=== PATIENT | male | born 1955 ===

== ENCOUNTER 2017-09-24 09:35 | Inpatient (IN) | payer MEDICAID, OTHER ==
--- NOTE | 2017-09-24 09:37 | ED PDOC ---
Arrival/HPI - General Time Seen by Provider: 09/24/17 09:36 Historian: Patient (Indonesian speaking) - History of Present Illness Narrative History of Present Illness (Text): 09/24/17 09:37 A 61 year old male, whose past medical history includes prior MD and 2 cardiac stent placement in [place] 2005, brought into the emergency department by EMS from [facility] complaining of left sided chest pain since 04:00 this morning. Patient notes associated nausea and shortness of breath. He reports his symptoms have improved since leaving freestanding ER. Patient denies any fever, chills, cough, vomiting, abdominal pain or any other complaints. Patient takes Aspirin daily. PMD: None Time/Duration: Other (04:00 this morning) Symptom Course: Improving Quality: Other Context: Home, Other ([facility]) Past Medical History - Provider Review Nursing Documentation Reviewed: Yes Family/Social History - Physician Review Nursing Documentation Reviewed: Yes Family/Social History: No Known Family HX Allergies/Home Meds Allergies/Adverse Reactions: Allergies No Known Allergies Allergy (Verified 09/24/17 12:40) Home Medications: Home Meds Medication Instructions Recorded Confirmed Aspirin [Ecotrin] 81 mg PO DAILY 09/24/17 09/24/17 Atorvastatin [Lipitor] 40 mg PO DIN 09/24/17 09/24/17 Levothyroxine [Levoxyl] 25 mg PO DAILY 09/24/17 09/24/17 Metoprolol Tartrate [Lopressor] 25 mg PO BID 09/24/17 09/24/17 Review of Systems - Physician Review All systems were reviewed & negative as marked: Yes - Review of Systems Constitutional: absent: Fevers, Night Sweats Respiratory: SOB. absent: Cough Cardiovascular: Chest Pain Gastrointestinal: Nausea. absent: Abdominal Pain, Vomiting Physical Exam Vital Signs Temp Pulse Resp BP Pulse Ox 09/24/17 10:00 98.6 F 46 L 18 135/77 98 09/24/17 09:40 97.8 F 47 L 18 135/77 98 Appearance: Positive for: Well-Appearing, Non-Toxic, Comfortable Pain Distress: None Mental Status: Positive for: Alert and Oriented X 3 - Systems Exam Head: Present: Atraumatic, Normocephalic Pupils: Present: PERRL Extroacular Muscles: Present: EOMI Conjunctiva: Present: Normal Mouth: Present: Moist Mucous Membranes Neck: Present: Normal Range of Motion Respiratory/Chest: Present: Clear to Auscultation, Good Air Exchange. No: Respiratory Distress, Accessory Muscle Use Cardiovascular: Present: Regular Rate and Rhythm, Normal S1, S2. No: Murmurs Abdomen: No: Tenderness, Distention, Peritoneal Signs Back: Present: Normal Inspection Upper Extremity: Present: Normal Inspection. No: Cyanosis, Edema Lower Extremity: Present: Normal Inspection. No: Edema Neurological: Present: GCS=15, CN II-XII Intact, Speech Normal Skin: Present: Warm, Dry, Normal Color. No: Rashes Psychiatric: Present: Alert, Oriented x 3, Normal Insight, Normal Concentration Medical Decision Making ED Course and Treatment: 09/24/17 09:37 Impression: A 61 year old male with left sided chest pain, which has improved. Differential Diagnosis included but are not limited to: MD Plan: -- Chest xray -- EKG -- Labs -- Integrilin bolus -- Reassess and disposition Progress Notes: Pre-hospital notice by ED physician Dr[facility], reports patient given 325 mg of Aspirin. 09/24/17 09:35 EKG shows NSR at [address]-segment elevations and Q-waves in V1-V4, with no change from prior EKG done at [facility] at 08:53 today. Interpreted by me. 09/24/17 09:[address] Quintana, recommends starting Integrilin bolus and sending patient for cardiac catheterization. 09/24/17 09:37 Code heart activated at this time. 09/24/17 09:[address] aDndy Pickering and resident Dr. Kathia Rodas, who will evaluate patient at bedside. - Critical Care Critical Care Minutes: 45 minutes - Lab Interpretations Lab Results: 09/24/17 09:40 09/24/17 09:40 Lab Results 09/24/17 09:45: Blood Type O POSITIVE, Antibody Screen Negative, BBK History Checked No verified bt 09/24/17 09:40: Free T4 0.97, TSH 3rd Generation 4.00 09/24/17 09:40: Triglycerides 100, Cholesterol 111 L, LDL Cholesterol Direct 46 , HDL Cholesterol 44 09/24/17 09:40: Sodium 142, Potassium 3.8, Chloride 105, Carbon Dioxide 25, Anion Gap 16, BUN 21, Creatinine 1.0, Est GFR ( Amer) > 60, Est GFR (Non- Af Amer) > 60, Random Glucose 98, Calcium 9.1, Total Bilirubin 0.8, AST 40, ALT 44, Alkaline Phosphatase 75, Lactate Dehydrogenase 431, Total Creatine Kinase 261 H, CK-MB (CK-2) 4.4 H, CK-MB (CK-2) % Cancelled, Troponin I < 0.01, Total Protein 7.0, Albumin 4.3, Globulin 2.7, Albumin/Globulin Ratio 1.6 09/24/17 09:40: PT 11.9, INR 1.03 09/24/17 09:40: WBC 6.6, RBC 4.55, Hgb 13.3 L, Hct 40.0 L, MCV 87.9, MCH 29.2, MCHC 33.3, RDW 13.1, Plt Count 235, MPV 9.1, Gran % 51.2, Lymph % (Auto) 39.2 H , Beaver % (Auto) 7.0 H, Eos % (Auto) 1.8, Baso % (Auto) 0.8, Gran # 3.39, Lymph # (Auto) 2.6, [place] # (Auto) 0.5, Eos # (Auto) 0.1, Baso # (Auto) 0.05 I have reviewed the lab results: Yes - RAD Interpretation Radiology Orders: 09/24/17 09:38 CHEST PORTABLE [RAD] Stat - Medication Orders Current Medication Orders: Aspirin (Ecotrin) 81 mg PO DAILY [facility] Atorvastatin Calcium (Lipitor) 40 mg PO DIN [facility] Clopidogrel Bisulfate (Plavix) 75 mg PO DAILY [facility] Sodium Chloride (Sodium Chloride 0.9%) 1,000 mls @ 100 mls/hr IV .Q10H [facility] Stop: 09/24/17 18:00 Last Admin: 09/24/17 10:45 Dose: 100 mls/hr eMAR Start Stop Document 09/24/17 10:45 JFG (Rec: 09/24/17 13:16 JFG [facility]PER[facility]) Intravenous Solution Start Date 09/24/17 Start Time 10:45 End Date 09/24/17 Levothyroxine Sodium (Synthroid) 25 mcg PO ACB [facility] Metoprolol Tartrate (Lopressor) 25 mg PO BID [facility] Neomycin/Polymyxin/Bacitracin (Neosporin Triple Antibiotic Oint) 0 gm TOP BID [facility] Pantoprazole Sodium (Protonix Ec Tab) 40 mg PO 0600,1600 [facility] Discontinued Medications Eptifibatide (Integrilin Bolus) 10.8 mg 0.18 mg/kg (10.8 mg) IV ONCE ONE Stop: 09/24/17 09:40 Levothyroxine Sodium (Synthroid) 25 mcg PO DAILY [facility] - Scribe Statement The provider has reviewed the documentation as recorded by the Edna He Provider Scribe Attestation: All medical record entries made by the Adyibe were at my direction and personally dictated by me. I have reviewed the chart and agree that the record accurately reflects my personal performance of the history, physical exam, medical decision making, and the department course for this patient. I have also personally directed, reviewed, and agree with the discharge instructions and disposition. Disposition/Present on Arrival - Present on Arrival Any Indicators Present on Arrival: No - Disposition Have Diagnosis and Disposition been Completed?: Yes Diagnosis: STEMI (ST elevation myocardial infarction) Disposition: HOSPITALIZED Disposition Time: 09:42 Patient Plan: Admission Condition: FAIR
[2017-09-24] MEDS ORDERED: Eptifibatide 20 mg/10mL Inj IV ONE (09:39)
[2017-09-24 09:41] VITALS: BMI 21.1
[2017-09-24] MEDS ORDERED: Midazolam 2 MG/2 ML VIAL ONE ×2 (09:55→10:35)
[2017-09-24] MEDS ORDERED: Lidocaine 2% Inj (20ml) ONE (09:55)
[2017-09-24 09:56] LABS: BASO # 0.05 K/mm3 (0.0-2.0); BASO % 0.8 % (0.0-3.0); EOS # 0.1 (0.0-0.7); EOS % 1.8 % (1.5-5.0); GRAN # 3.39 (1.4-6.5); GRAN % 51.2 % (50.0-68.0); HEMOGLOBIN 13.3 g/dL (14.0-18.0); LYMPH # 2.6 (1.2-3.4); LYMPH % 39.2 % (22.0-35.0); MEAN CELL VOLUME 87.9 fl (80.0-105.0); MEAN CORPUSCULAR HEMOGLOBIN 29.2 pg (25.0-35.0); MEAN CORPUSCULAR HGB CONC 33.3 g/dl (31.0-37.0); MEAN PLATELET VOLUME 9.1 fl (7.0-11.0); MONO # 0.5 (0.1-0.6); RBC 4.55 10^6/uL (3.5-6.1); RED CELL DISTRIBUTION WIDTH 13.1 % (11.5-14.5); WHITE BLOOD COUNT 6.6 10^3/ul (4.5-11.0)
[2017-09-24] MEDS ORDERED: Iodixanol 320 MG/ML 200 ML BOTTLE IV ONE (09:56)
[2017-09-24] MEDS ORDERED: Eptifibatide 0.75 mg/ml 75 MG/100 ML BOTTLE IV ONE (09:56)
[2017-09-24] MEDS ORDERED: Iohexol 350mgl/ml 50 ML ONE (09:56)
[2017-09-24 10:03] LABS: INR 1.03 (0.93-1.08); PROTHROMBIN TIME 11.9 SECONDS (9.4-12.5)
--- NOTE | 2017-09-24 10:04 | RAD ---
HISTORY: chest pain COMPARISON: No prior. FINDINGS: LUNGS: No active pulmonary disease. PLEURA: No significant pleural effusion identified, no pneumothorax apparent. CARDIOVASCULAR: Normal. OSSEOUS STRUCTURES: No significant abnormalities. VISUALIZED UPPER ABDOMEN: Normal. OTHER FINDINGS: None. IMPRESSION: No active disease.
[2017-09-24 10:06] LABS: ALB/GLOB RATIO 1.6 (1.1-1.8); ALBUMIN 4.3 g/dL (3.0-4.8); ALT/SGPT 44 U/L (7-56); AST/SGOT 40 U/L (17-59); BLOOD UREA NITROGEN 21 mg/dL (7-21); CALCIUM 9.1 mg/dL (8.4-10.5); GFR AFRICAN-AMERICAN > 60; GFR NON-AFRICAN AMERICAN > 60
--- NOTE | 2017-09-24 10:10 | CP.PCM.HP ---
<Kathia Rodas - Last Filed: 09/24/17 11:02> History of Present Illness - History of Present Illness History of Present Illness: PGY-[address] Pickering CC: Code Heart 61 Coloumbian male, Azerbaijani speaking only, whose past medical history includes prior [place] and cardiac stent placement in [place] 2005 and family history premature [place], brought into the emergency department by EMS from [facility] complaining of left sided chest pain since 04:00 this morning. Patient notes associated nausea and shortness of breath. He reports his symptoms have improved since leaving fre[facility]anding ER. EKG at [facility]3] (8:53am): Sinus 47. ST elevation V1-4. No reciprocal changes EKG at [facility] ED (9:35am): Sinus 46. ST elevation V1-V3. New TWI V4. No reciprocal changes Pt got ASA 325 prior to [facility]. Dr Quintana, child protective investigator, was notified. Integrillin bolus was given in the ED. laboratory miller reveals restonosis at LAD. A new BRODY was placed s/p PCI. In ICU patient complaint of R groin itch. He scratched via clothes and bled. He has chronic slow and weak stream in urine ROS: Patient denies any fever, chills, cough, vomiting, abdominal pain or any other complaints. PMH CAD s/p stent, 2005 Hyperlipidemia Hypothyroidism PSH None FH Brother heart attack at 50 SH Denies smoke, drink, drug All NKDA Med ASA 100, metoprolol 25 BID, atorvastatin 40, thyroxine 25 PMD No (only in [place]) Pharm No (only in [place]) Present on Admission - Present on Admission Any Indicators Present on Admission: No Past Patient History - Infectious Disease Hx of Infectious Diseases: None - Past Social History Smoking Status: Unknown If Ever Smoked - CARDIAC Other/Comment: cardiac stent - ENDOCRINE/METABOLIC Hx Hypothyroidism: Yes - PSYCHIATRIC Hx Substance Use: No - ANESTHESIA Hx Anesthesia: No Hx Anesthesia Reactions: No Meds Allergies/Adverse Reactions: Allergies Allergy/AdvReac Type Severity Reaction Status Date / Time No Known Allergies Allergy Verified 09/24/17 12:40 Physical Exam - Constitutional Appears: No Acute Distress - Head Exam Head Exam: ATRAUMATIC, NORMAL INSPECTION, NORMOCEPHALIC - Eye Exam Eye Exam: EOMI, Normal appearance, PERRL. absent: Scleral icterus Pupil Exam: NORMAL ACCOMODATION - ENT Exam ENT Exam: Mucous Membranes Moist - Neck Exam Additional comments: supple, no JVD - Respiratory Exam Respiratory Exam: Clear to Auscultation Bilateral, NORMAL BREATHING PATTERN. absent: Rales, Rhonchi, Wheezes - Cardiovascular Exam Cardiovascular Exam: Bradycardia, REGULAR RHYTHM, +S1, +S2 - GI/Abdominal Exam GI & Abdominal Exam: Normal Bowel Sounds, Soft. absent: Distended, Tenderness - Extremities Exam Extremities exam: Positive for: pedal pulses present. Negative for: calf tenderness, pedal edema Additional comments: R groin scab, well healed, 1ich x 1 inch - Neurological Exam Neurological exam: Alert, Oriented x3 - Psychiatric Exam Psychiatric exam: Normal Affect, Normal Mood - Skin Skin Exam: Dry, Warm Results - Vital Signs Recent Vital Signs: Last Vital Signs Temp 97.8 F 09/24/17 09:40 Pulse 47 L 09/24/17 09:40 Resp 18 09/24/17 09:40 BP 135/77 09/24/17 09:40 Pulse Ox 98 09/24/17 09:40 - Labs Result Diagrams: 09/24/17 09:40 09/24/17 09:40 Labs: Laboratory Results - last 24 hr 09/24/17 09:40 WBC 6.6 RBC 4.55 Hgb 13.3 L Hct 40.0 L MCV 87.9 MCH 29.2 MCHC 33.3 RDW 13.1 Plt Count 235 MPV 9.1 Gran % 51.2 Lymph % (Auto) 39.2 H Josephine % (Auto) 7.0 H Eos % (Auto) 1.8 Baso % (Auto) 0.8 Gran # 3.39 Lymph # (Auto) 2.6 Josephine # (Auto) 0.5 Eos # (Auto) 0.1 Baso # (Auto) 0.05 Assessment & Plan - Assessment and Plan (Free Text) Plan: 61 Colou[place]ian male, Azerbaijani speaking only, whose past medical history includes prior [place] and cardiac stent placement in [place] 2005 and family history of premature cardiac event, brought into the emergency department by EMS from [facility] complaining of left sided chest pain associated with nausea and shortness of breath. EKG at [facility]3] (8:53am) showed Sinus [address] elevation at V1-4. EKG at [facility] ED (9:35am) shows Sinus 46. ST elevation V1-V3. New TWI V4. No reciprocal changes. Pt got ASA 325 prior to [facility] and received integrillin bolus x1 prior to optical laboratory technician. Pt had a restenosis in prior LAD stent. After PCI, he receive a new drug-eluting stent at the LAD. STEMI due to LAD restenosis BRODY placement - R groin assess - No need for integrillin gtt - Pending Lipid, A1c, TSH - AM EKG and trend cardiac enzyme overnight - Add plavix - Continue home ASA, metoprolol, lipitor - Echo - NS@100 to prevent contrast nephropathy - strict i/o R groin itch, s/p bleed from scratching - triple ointment Hypothyroidism - Continue home thyroxine - Pending TSH, free T4 Suspected benigh prostate hyperplasia - F/u outpatient - U/A, u/c Prophylaxis - protonix. No need for heparin SCD per Dr Quintana because he received doses of anticoagulant and antiplatete during cath Disposition - expect to discharge home tomorrow per cardiology - follow up with [facility] 1 week after discharge - follow up with Dr Quintana 1-2 weeks after discharge s/r/d/w Dr. Pickering <Dandy Pickering B - Last Filed: 09/25/17 16:59> Results - Vital Signs Recent Vital Signs: Last Vital Signs Temp 98.8 F 09/25/17 12:00 Pulse 58 L 09/25/17 15:31 Resp 13 09/25/17 15:31 BP 95/49 L 09/25/17 15:00 Pulse Ox 96 09/25/17 15:30 - Labs Result Diagrams: 09/25/17 06:25 09/25/17 06:25 Labs: Laboratory Results - last 24 hr 09/25/17 09/25/17 06:25 06:25 WBC 6.8 RBC 4.16 Hgb 12.1 L Hct 36.4 L MCV 87.5 MCH 29.1 MCHC 33.2 RDW 13.2 Plt Count 202 MPV 9.4 Gran % 65.5 Lymph % (Auto) 26.0 Josephine % (Auto) 7.3 H Eos % (Auto) 0.9 L Baso % (Auto) 0.3 Gran # 4.46 Lymph # (Auto) 1.8 Josephine # (Auto) 0.5 Eos # (Auto) 0.1 Baso # (Auto) 0.02 Sodium 141 Potassium 3.6 Chloride 107 Carbon Dioxide 23 Anion Gap 14 BUN 18 Creatinine 1.0 Est GFR ( Amer) > 60 Est GFR (Non-Af Amer) > 60 Random Glucose 85 Calcium 8.7 Phosphorus 3.9 Magnesium 2.1 Total Bilirubin 1.2 AST 32 ALT 37 Alkaline Phosphatase 65 Total Protein 6.1 Albumin 3.5 Globulin 2.5 Albumin/Globulin Ratio 1.4 Triglycerides 70 Cholesterol 98 L LDL Cholesterol Direct 41 HDL Cholesterol 41 Attending/Attestation - Attestation I have personally seen and examined this patient.: Yes I have fully participated in the care of the patient.: Yes I have reviewed all pertinent clinical information: Yes Notes (Text): I have seen and examined the patient at bedside. Agree with the above note.
[2017-09-24 10:17] LABS: TROPONIN I < 0.01 ng/mL
[2017-09-24 10:38] LABS: CK-MB 4.4 ng/mL (0.0-3.6); HDL CHOLESTEROL 44 mg/dL (29-60)
[2017-09-24] MEDS ORDERED: Sodium Chloride 0.9% 1,000 ML IV SCH (10:45)
[2017-09-24 10:49] LABS: LDL CHOLESTEROL 46 mg/dL (0-129)
--- NOTE | 2017-09-24 10:49 | CARD ---
APPROVED REPORT EKG Measurement Heart [id number] <Conclusion> Marked sinus bradycardia with sinus arrhythmia Left axis deviation Anteroseptal infarct, age undetermined T wave abnormality, consider lateral ischemia Abnormal ECG
[2017-09-24 11:05] LABS: FREE T4 0.97 ng/dL (0.78-2.19)
[2017-09-24] MEDS: Bacitracin/Neomycin/Polymyxin Oint(30GM) TOP SCH ×2 (12:00→17:27)
[2017-09-24 12:20] LABS: PH,URINE 6.5 (4.7-8.0); URINE BILIRUBIN NEGATIVE (NEGATIVE); URINE BLOOD NEGATIVE (NEGATIVE); URINE GLUCOSE (UA) NEGATIVE (NEGATIVE); URINE LEUKOCYTE ESTERASE NEGATIVE Leu/uL (NEGATIVE); URINE PROTEIN NEGATIVE mg/dL (<30 mg/dL); URINE UROBILINOGEN 0.2 E.U./dL (<1 E.U./dL)
[2017-09-24 12:21] LABS: URINE APPEARANCE CLEAR (CLEAR); URINE COLOR YELLOW (YELLOW)
--- NOTE | 2017-09-24 12:53 | CP.PCM.CON ---
<Ronald Funk - Last Filed: 09/24/17 13:04> History of Present Illness - History of Present Illness History of Present Illness: Consult note for ICU Patient is a 61 year old male with a past medical history of [place] s/p 2 stents in 2005 and hypothyroidism who presents to is admitted to ICU s/p catheterization. Patient states he woke up this morning at 4 a.m. with pain in his left chest which wrapped around to the left part of his back and radiated downward to his waist. Patient described the pain as sharp, rating it an 8/10 which wasn't relieved until given aspirin. Pain had no exacerbating factors. States pain was similar to the pain he experienced during his first LA in 2005 while he was in [facility]. States pain in left waist is still present however denies shortness of breath, chest pain, abdominal pain, nausea, vomiting, diarrhea, fevers, chills, headache, cough. When patient experienced the pain he called for a taxi to bring him to the [facility] for further evaluation. Patient was given aspirin 325 [address] then [address] to the [facility]. EKG at [facility] done at 8: 53am reveals sinus 47, ST elevation V1-4 with no reciprocal changes. EKG at [facility] done at 9:35am reveals sinus 46. ST elevation V1-V3. New TWI V4. No reciprocal changes. Integrillin bolus was given in the ED. labour market economist reveals restonosis at LAD. A new BRODY was placed s/p PCI. PMD: In [facility]. Patient has not established care since being [place] this country [place] 1 [place] PMHx: LA s/p 2 stents in 2005, hypothyroidism Medications: Synthroid, Metoprolol, Aspirin , Atorvastatin; patient states he gets his medications sent from [facility] and is completely compliant with his medications SHx: Catheterization in 2005 in which 2 stents were placed FHx: Extensive for cardiac disease; brother at 40 yo due to LA, most of his paternal uncles have due to LA. Social Hx: Living in [facility] for 1 year with his son. High functional capacity; walks long distances every day. States he is compliant with his diet. Does not work but remains physically active Allergies: denies Review of Systems - Constitutional Constitutional: absent: Anorexia, Chills, Fatigue, Fever - EENT Eyes: absent: Change in Vision - Cardiovascular Cardiovascular: absent: Chest Pain, Dyspnea - Respiratory Respiratory: absent: Cough, Dyspnea - Gastrointestinal Gastrointestinal: absent: Abdominal Pain, Nausea, Vomiting - Genitourinary Genitourinary: absent: Dysuria - Musculoskeletal Musculoskeletal: Back Pain (left waist/back) - Neurological Neurological: absent: Dizziness, Numbness - Psychiatric Psychiatric: absent: Anxiety - Endocrine Endocrine: absent: Fatigue, Flushing, Palpitations Past Patient History - Infectious Disease Hx of Infectious Diseases: None - Past Social History Smoking Status: Unknown If Ever Smoked - CARDIAC Other/Comment: cardiac stent - ENDOCRINE/METABOLIC Hx Hypothyroidism: Yes - PSYCHIATRIC Hx Substance Use: No - ANESTHESIA Hx Anesthesia: No Hx Anesthesia Reactions: No Meds Allergies/Adverse Reactions: Allergies Allergy/AdvReac Type Severity Reaction Status Date / Time No Known Allergies Allergy Verified 09/24/17 12:40 - Medications Medications: Current Medications Aspirin (Ecotrin) 81 mg PO DAILY [facility] Atorvastatin Calcium (Lipitor) 40 mg PO DIN [facility] Clopidogrel Bisulfate (Plavix) 75 mg PO DAILY [facility] Sodium Chloride (Sodium Chloride 0.9%) 1,000 mls @ 100 mls/hr IV .Q10H [facility] Stop: 09/24/17 18:00 Levothyroxine Sodium (Synthroid) 25 mcg PO ACB [facility] Metoprolol Tartrate (Lopressor) 25 mg PO BID [facility] Neomycin/Polymyxin/Bacitracin (Neosporin Triple Antibiotic Oint) 0 gm TOP BID [facility] Physical Exam - Head Exam Head Exam: ATRAUMATIC, NORMAL INSPECTION, NORMOCEPHALIC - Eye Exam Eye Exam: EOMI, Normal appearance - ENT Exam ENT Exam: Mucous Membranes Moist, Normal Exam - Neck Exam Neck exam: Positive for: Normal Inspection - Respiratory Exam Respiratory Exam: Clear to Auscultation Bilateral, NORMAL BREATHING PATTERN. absent: Rales, Rhonchi, Wheezes - Cardiovascular Exam Cardiovascular Exam: Bradycardia, REGULAR RHYTHM, +S1, +S2 - GI/Abdominal Exam GI & Abdominal Exam: Normal Bowel Sounds, Soft. absent: Distended, Guarding, Tenderness - Extremities Exam Extremities exam: Positive for: normal inspection - Back Exam Back exam: NORMAL INSPECTION - Neurological Exam Neurological exam: Alert, CN II-XII Intact, Oriented x3 - Skin Additional comments: Skin patent at site of cath, no hematoma or ecchymosis noted, no purulent drainage Results - Vital Signs Recent Vital Signs: Last Vital Signs Temp 97.8 F 09/24/17 12:09 Pulse 38 L 09/24/17 12:09 Resp 18 09/24/17 12:09 BP 108/52 L 09/24/17 12:09 Pulse Ox 100 09/24/17 12:09 - Labs Result Diagrams: 09/24/17 09:40 09/24/17 09:40 Labs: Laboratory Results - last 24 hr 09/24/17 11:52 Urine Color Yellow Urine Appearance Clear Urine pH 6.5 Ur Specific [place] <= 1.005 Urine Protein Negative Urine Glucose (UA) Negative Urine Ketones Negative Urine Blood Negative Urine Nitrate Negative Urine Bilirubin Negative Urine Urobilinogen 0.2 Ur Leukocyte Esterase Negative Assessment & Plan - Assessment and Plan (Free Text) Assessment: 61 M with history of ACS and hypothyroidism presenting s/p cardiac cath due to LA. labour market economist revealed restonosis at LAD. A new BRODY was placed s/p PCI. Neuro -AAOx3 Cardiovascular -Maintain MAP>65 -F/U post cath orders -Maintain normotensive -Monitor BP -Continue with aspirin,lipitor,plavix,lopressor -Echo -F/U lipid panel Pulmonary -Maintain sPO2 >92% Gastrointestinal -Heart healthy diet -GI prophylaxis Endocrine -Continue with synthroid -TSH, HgA1C ordered Renal -Maintain euvolemia -Maintain normal electrolytes -Monitor I&O Hematologic -H&H stable continue to monitor -INR stable at 1.03 Skin -monitor cath site for hematoma formation, ecchymosis, drainage Infectious disease -No signs of UTI on UA -Absence of leukocytosis -Afebrile -No further intervention at this time <Luis Alberto Evans - Last Filed: 09/24/17 15:06> Meds - Medications Medications: Current Medications Aspirin (Ecotrin) 81 mg PO DAILY [facility] Atorvastatin Calcium (Lipitor) 40 mg PO DIN [facility] Clopidogrel Bisulfate (Plavix) 75 mg PO DAILY [facility] Sodium Chloride (Sodium Chloride 0.9%) 1,000 mls @ 100 mls/hr IV .Q10H [facility] Stop: 09/24/17 18:00 Last Admin: 09/24/17 10:45 Dose: 100 mls/hr Levothyroxine Sodium (Synthroid) 25 mcg PO ACB [facility] Metoprolol Tartrate (Lopressor) 25 mg PO BID [facility] Neomycin/Polymyxin/Bacitracin (Neosporin Triple Antibiotic Oint) 0 gm TOP BID [facility] Pantoprazole Sodium (Protonix Ec Tab) 40 mg PO 0600,1600 [facility] Results - Vital Signs Recent Vital Signs: Last Vital Signs Temp 97.8 F 09/24/17 12:39 Pulse 37 L 09/24/17 14:20 Resp 19 09/24/17 14:20 BP 111/52 L 09/24/17 14:00 Pulse Ox 100 09/24/17 14:20 - Labs Result Diagrams: 09/24/17 09:40 09/24/17 09:40 Labs: Laboratory Results - last 24 hr 09/24/17 09/24/17 11:52 13:55 Urine Color Yellow Urine Appearance Clear Urine pH 6.5 Ur Specific [place] <= 1.005 Urine Protein Negative Urine Glucose (UA) Negative Urine Ketones Negative Urine Blood Negative Urine Nitrate Negative Urine Bilirubin Negative Urine Urobilinogen 0.2 Ur Leukocyte Esterase Negative Blood Type Confirm O POSITIVE Assessment & Plan - Assessment and Plan (Free Text) Assessment: Patient seen and examined on rounds, with resident, on rounds agree with note with following additions/exceptions: Patient is 61yo male with PMHx of HLD, CAD s/p PCI in 2005, hypothyroidism, presented with STEMI, V1-V3 MAGUE, s/p cardiac cath, with LAD restenosis, stent placed. Currently afebrile, HD stable, comfortable, in NAD, chest pain free. STEMI HLD Hypothyroid CAD Recommend: - supp o2 as needed - ASA, Plavix Statin - HOLD BB - check Lipid Panel, HgbA1C - ECHO - cardiology eval - check TSH - DVT ppx - Monitor in CCU
--- NOTE | 2017-09-24 13:37 | CARDCATH ---
PROCEDURE DATE: 09/24/2017 EMERGENCY CARDIAC CATHETERIZATION AND PTCA HISTORY: The patient is a 61-year-old male, who presented to the emergency room with sudden onset of chest pain. His past medical history includes previous PTCA in the past. Because of his symptoms as well as EKG that shows an ST elevations in the anterior wall, a code heart was called and the patient was transferred to the labor economist for an emergency procedure. PROCEDURE: Emergency left heart catheterization with coronary arteriography, left ventriculogram as well as PTCA and stent of an LAD. The right femoral artery was cannulated with a 6-Albanian sheath. There were no complications. I performed moderate sedation, which included the presence of an independent trained observer that assisted in monitoring the patient's level of consciousness and physiologic status. After administration of Versed and fentanyl, my intra service time was 30 minutes. The findings on catheterization revealed a right dominant circulation. The RCA was free of significant disease. The left main artery was unremarkable. The circumflex artery and obtuse marginal branches were free of significant disease. The LAD revealed a 90% in-stent restenosis extending from the proximal to the mid LAD. Left ventriculogram was performed in the BRITO projection. In the BRITO projection, wall motion revealed an anterior apical akinetic area. Estimated ejection fraction is approximately 40-45%. The patient was started on 4000 of IV heparin, which resulted in an ACT of 300. The patient was given Integrilin two boluses and a drip in the emergency room. He was loaded with Brilinta. The guiding catheter was placed in the ostium of the left main artery. 0.014 ATW wire was used to cross the in-stent restenosis. A 3 balloon was utilized to predilate the in-stent restenosis. A 3 x 38 mm drug-eluting stent was placed and deployed in the LAD extending the length of the previously placed stent. After balloon deflation and removal, repeat coronary arteriography revealed an excellent result with no residual stenosis and MARY 3 flow. Angio-Seal was used to close the femoral artery site. The patient tolerated the procedure well. In summary, the procedure was successful for an emergency PTCA and stent of an in-stent restenosis of 90% of the proximal LAD and mid LAD. Cardiac catheterization revealed single-vessel CAD. LV function revealed segmental wall motion abnormalities of the anteroapical segment. Given these findings, the patient will need to remain on aspirin indefinitely. We will switch the patient back to Plavix. He will need to undergo a strict cardiac risk reduction program. Dago Quintana MD
[2017-09-24] MEDS: Pantoprazole 40 mg EC Tab PO SCH (16:02)
[2017-09-25] MEDS ORDERED: Pantoprazole 40 mg EC Tab PO SCH (06:00)
[2017-09-25 07:07] LABS: BASO # 0.02 K/mm3 (0.0-2.0); BASO % 0.3 % (0.0-3.0); EOS # 0.1 (0.0-0.7); EOS % 0.9 % (1.5-5.0); GRAN # 4.46 (1.4-6.5); GRAN % 65.5 % (50.0-68.0); HEMOGLOBIN 12.1 g/dL (14.0-18.0); LYMPH # 1.8 (1.2-3.4); MEAN CELL VOLUME 87.5 fl (80.0-105.0); MEAN CORPUSCULAR HEMOGLOBIN 29.1 pg (25.0-35.0); MEAN CORPUSCULAR HGB CONC 33.2 g/dl (31.0-37.0); MEAN PLATELET VOLUME 9.4 fl (7.0-11.0); MONO # 0.5 (0.1-0.6); MONO % 7.3 % (1.0-6.0); RBC 4.16 10^6/uL (3.5-6.1); RED CELL DISTRIBUTION WIDTH 13.2 % (11.5-14.5); WHITE BLOOD COUNT 6.8 10^3/ul (4.5-11.0)
[2017-09-25 07:11] LABS: ALB/GLOB RATIO 1.4 (1.1-1.8); ALBUMIN 3.5 g/dL (3.0-4.8); ALT/SGPT 37 U/L (7-56); AST/SGOT 32 U/L (17-59); BLOOD UREA NITROGEN 18 mg/dL (7-21); CALCIUM 8.7 mg/dL (8.4-10.5); GFR AFRICAN-AMERICAN > 60; GFR NON-AFRICAN AMERICAN > 60; HDL CHOLESTEROL 41 mg/dL (29-60)
[2017-09-25 07:22] LABS: LDL CHOLESTEROL 41 mg/dL (0-129)
[2017-09-25] MEDS ORDERED: Levothyroxine 25 MCG TAB PO SCH ×3 (07:30→10:00)
--- NOTE | 2017-09-25 08:04 | CP.CCUPN ---
<Ronald Funk - Last Filed: 09/25/17 08:28> CCU Subjective - Physician Review Subjective (Free Text): Patient seen and examined at bedside in no acute distress. States that his chest pain has resolved. Denies chest pain, shortness of breath, abdominal pain , dizziness, nausea, vomiting, fevers, chills, cough. Critical Care Time Spent (in minutes): 30 CCU Objective - Physical Exam Head: Positive for: Atraumatic, Normocephalic Pupils: Positive for: PERRL Extroacular Muscles: Positive for: EOMI Conjunctiva: Positive for: Normal Mouth: Positive for: Moist Mucous Membranes Neck: Positive for: Normal Range of Motion Respiratory/Chest: Positive for: Clear to Auscultation, Good Air Exchange. Negative for: Respiratory Distress, Accessory Muscle Use Cardiovascular: Positive for: Regular Rate and Rhythm, Normal S1, S2, Bradycardic. Negative for: Murmurs Abdomen: Negative for: Tenderness, Distention, Peritoneal Signs Back: Positive for: Normal Inspection Upper Extremity: Positive for: Normal Inspection. Negative for: Cyanosis, Edema Lower Extremity: Positive for: Normal Inspection. Negative for: Edema Neurological: Positive for: GCS=15, CN II-XII Intact, Speech Normal Skin: Positive for: Warm, Dry, Normal Color. Negative for: Rashes Psychiatric: Positive for: Alert, Oriented x 3, Normal Insight, Normal Concentration - Medications Active Medications: Active Medications Generic Name Dose Route Start Last Admin Trade Name Freq PRN Reason Stop Dose Admin Aspirin 81 mg 09/25/17 10:00 Ecotrin PO DAILY [facility] Atorvastatin Calcium 40 mg 09/24/17 17:00 09/24/17 17:30 Lipitor PO 40 mg DIN NIMA Administration Clopidogrel Bisulfate 75 mg 09/24/17 10:45 09/24/17 16:01 Plavix PO Not Given DAILY [facility] Levothyroxine Sodium 25 mcg 09/25/17 07:30 Synthroid PO ACB [facility] Metoprolol Tartrate 25 mg 09/24/17 18:00 Lopressor PO BID NIMA Neomycin/Polymyxin/Bacitracin 0 gm 09/24/17 11:15 09/24/17 17:27 Neosporin Triple Antibiotic Oint TOP 1 applic BID NIMA Administration Pantoprazole Sodium 40 mg 09/24/17 16:00 09/24/17 16:02 Protonix Ec Tab PO 40 mg 0600,1600 NIMA Administration - Patient Studies Lab Studies: Lab Studies 09/25/17 09/25/17 09/24/17 Range/Units 06:25 06:25 13:55 WBC 6.8 (4.5-11.0) 10^3/ul RBC 4.16 (3.5-6.1) 10^6/uL Hgb 12.1 L (14.0-18.0) g/dL Hct 36.4 L (42.0-52.0) % MCV 87.5 (80.0-105.0) fl MCH 29.1 (25.0-35.0) pg MCHC 33.2 (31.0-37.0) g/dl RDW 13.2 (11.5-14.5) % Plt Count 202 (120.0-450.0) 10^3/uL MPV 9.4 (7.0-11.0) fl Gran % 65.5 (50.0-68.0) % Lymph % (Auto) 26.0 (22.0-35.0) % Graves % (Auto) 7.3 H (1.0-6.0) % Eos % (Auto) 0.9 L (1.5-5.0) % Baso % (Auto) 0.3 (0.0-3.0) % Gran # 4.46 (1.4-6.5) Lymph # (Auto) 1.8 (1.2-3.4) Graves # (Auto) 0.5 (0.1-0.6) Eos # (Auto) 0.1 (0.0-0.7) Baso # (Auto) 0.02 (0.0-2.0) K/mm3 Sodium 141 (132-148) mmol/L Potassium 3.6 (3.6-5.0) mmol/L Chloride 107 (98-107) mmol/L Carbon Dioxide 23 (21-33) mmol/L Anion Gap 14 (10-20) BUN 18 (7-21) mg/dL Creatinine 1.0 (0.8-1.5) mg/dl Est GFR ( Amer) > 60 Est GFR (Non-Af Amer) > 60 POC Glucose (mg/dL) (65-110) mg/dL Random Glucose 85 (70-110) mg/dL Calcium 8.7 (8.4-10.5) mg/dL Phosphorus 3.9 (2.5-4.5) mg/dL Magnesium 2.1 (1.7-2.2) mg/dL Total Bilirubin 1.2 (0.2-1.3) mg/dL AST 32 (17-59) U/L ALT 37 (7-56) U/L Alkaline Phosphatase 65 (38-126) U/L Total Protein 6.1 (5.8-8.3) g/dL Albumin 3.5 (3.0-4.8) g/dL Globulin 2.5 gm/dL Albumin/Globulin Ratio 1.4 (1.1-1.8) Triglycerides 70 (35-160) mg/dL Cholesterol 98 L (130-200) mg/dL LDL Cholesterol Direct 41 (0-129) mg/dL HDL Cholesterol 41 (29-60) mg/dL Urine Color (YELLOW) Urine Appearance (CLEAR) Urine pH (4.7-8.0) Ur Specific Argyle (1.005-1.035) Urine Protein (<30 mg/dL) mg/dL Urine Glucose (UA) (NEGATIVE) mg/dL Urine Ketones (NEGATIVE) mg/dL Urine Blood (NEGATIVE) Urine Nitrate (NEGATIVE) Urine Bilirubin (NEGATIVE) Urine Urobilinogen (<1 E.U./dL) E.U./dL Ur Leukocyte Esterase (NEGATIVE) Janna/uL Blood Type Confirm O POSITIVE 09/24/17 09/24/17 Range/Units 11:52 10:56 WBC (4.5-11.0) 10^3/ul RBC (3.5-6.1) 10^6/uL Hgb (14.0-18.0) g/dL Hct (42.0-52.0) % MCV (80.0-105.0) fl MCH (25.0-35.0) pg MCHC (31.0-37.0) g/dl RDW (11.5-14.5) % Plt Count (120.0-450.0) 10^3/uL MPV (7.0-11.0) fl Gran % (50.0-68.0) % Lymph % (Auto) (22.0-35.0) % Graves % (Auto) (1.0-6.0) % Eos % (Auto) (1.5-5.0) % Baso % (Auto) (0.0-3.0) % Gran # (1.4-6.5) Lymph # (Auto) (1.2-3.4) Graves # (Auto) (0.1-0.6) Eos # (Auto) (0.0-0.7) Baso # (Auto) (0.0-2.0) K/mm3 Sodium (132-148) mmol/L Potassium (3.6-5.0) mmol/L Chloride (98-107) mmol/L Carbon Dioxide (21-33) mmol/L Anion Gap (10-20) BUN (7-21) mg/dL Creatinine (0.8-1.5) mg/dl Est GFR ( Amer) Est GFR (Non-Af Amer) POC Glucose (mg/dL) 78 (65-110) mg/dL Random Glucose (70-110) mg/dL Calcium (8.4-10.5) mg/dL Phosphorus (2.5-4.5) mg/dL Magnesium (1.7-2.2) mg/dL Total Bilirubin (0.2-1.3) mg/dL AST (17-59) U/L ALT (7-56) U/L Alkaline Phosphatase (38-126) U/L Total Protein (5.8-8.3) g/dL Albumin (3.0-4.8) g/dL Globulin gm/dL Albumin/Globulin Ratio (1.1-1.8) Triglycerides (35-160) mg/dL Cholesterol (130-200) mg/dL LDL Cholesterol Direct (0-129) mg/dL HDL Cholesterol (29-60) mg/dL Urine Color Yellow (YELLOW) Urine Appearance Clear (CLEAR) Urine pH 6.5 (4.7-8.0) Ur Specific Argyle <= 1.005 (1.005-1.035) Urine Protein Negative (<30 mg/dL) mg/dL Urine Glucose (UA) Negative (NEGATIVE) mg/dL Urine Ketones Negative (NEGATIVE) mg/dL Urine Blood Negative (NEGATIVE) Urine Nitrate Negative (NEGATIVE) Urine Bilirubin Negative (NEGATIVE) Urine Urobilinogen 0.2 (<1 E.U./dL) E.U./dL Ur Leukocyte Esterase Negative (NEGATIVE) Janna/uL Blood Type Confirm Laboratory Results - last 24 hr 09/24/17 09/24/17 09/24/17 10:56 11:52 13:55 WBC RBC Hgb Hct MCV MCH MCHC RDW Plt Count MPV Gran % Lymph % (Auto) Graves % (Auto) Eos % (Auto) Baso % (Auto) Gran # Lymph # (Auto) Graves # (Auto) Eos # (Auto) Baso # (Auto) Sodium Potassium Chloride Carbon Dioxide Anion Gap BUN Creatinine Est GFR ( Amer) Est GFR (Non-Af Amer) POC Glucose (mg/dL) 78 Random Glucose Calcium Phosphorus Magnesium Total Bilirubin AST ALT Alkaline Phosphatase Total Protein Albumin Globulin Albumin/Globulin Ratio Triglycerides Cholesterol LDL Cholesterol Direct HDL Cholesterol Urine Color Yellow Urine Appearance Clear Urine pH 6.5 Ur Specific Argyle <= 1.005 Urine Protein Negative Urine Glucose (UA) Negative Urine Ketones Negative Urine Blood Negative Urine Nitrate Negative Urine Bilirubin Negative Urine Urobilinogen 0.2 Ur Leukocyte Esterase Negative Blood Type Confirm O POSITIVE 09/25/17 09/25/17 06:25 06:25 WBC 6.8 RBC 4.16 Hgb 12.1 L Hct 36.4 L MCV 87.5 MCH 29.1 MCHC 33.2 RDW 13.2 Plt Count 202 MPV 9.4 Gran % 65.5 Lymph % (Auto) 26.0 Graves % (Auto) 7.3 H Eos % (Auto) 0.9 L Baso % (Auto) 0.3 Gran # 4.46 Lymph # (Auto) 1.8 Graves # (Auto) 0.5 Eos # (Auto) 0.1 Baso # (Auto) 0.02 Sodium 141 Potassium 3.6 Chloride 107 Carbon Dioxide 23 Anion Gap 14 BUN 18 Creatinine 1.0 Est GFR ( Amer) > 60 Est GFR (Non-Af Amer) > 60 POC Glucose (mg/dL) Random Glucose 85 Calcium 8.7 Phosphorus 3.9 Magnesium 2.1 Total Bilirubin 1.2 AST 32 ALT 37 Alkaline Phosphatase 65 Total Protein 6.1 Albumin 3.5 Globulin 2.5 Albumin/Globulin Ratio 1.4 Triglycerides 70 Cholesterol 98 L LDL Cholesterol Direct 41 HDL Cholesterol 41 Urine Color Urine Appearance Urine pH Ur Specific Argyle Urine Protein Urine Glucose (UA) Urine Ketones Urine Blood Urine Nitrate Urine Bilirubin Urine Urobilinogen Ur Leukocyte Esterase Blood Type Confirm Review of Systems - Constitutional Constitutional: absent: Fever, Chills, Sweats, Weakness - EENT Eyes: absent: Change in Vision Nose/Mouth/Throat: absent: Mouth Pain - Cardiovascular Cardiovascular: absent: Chest Pain, Dyspnea - Respiratory Respiratory: absent: Cough, Dyspnea - Gastrointestinal Gastrointestinal: absent: Abdominal Pain, Diarrhea, Nausea, Vomiting - Genitourinary Genitourinary: absent: Dysuria - Neurological Neurological: absent: Dizziness, Numbness, Headaches - Psychiatric Psychiatric: absent: Anxiety - Endocrine Endocrine: absent: Fatigue - Hematologic/Lymphatic Hematologic: UNREMARKABLE Assessment/Plan - Assessment and Plan (Free Text) Assessment: 61 M with history of ACS and hypothyroidism presenting s/p cardiac cath due to OH. cardiac cath lab manager revealed restonosis at LAD. A new BRODY was placed s/p PCI. Plan: Neuro: -AAOx 3 -OOB to chair to assess gait stability Pulmonary -Maintain SpO2>92% Cardiovascular -Maintain MAP>65 -Continue with Plavix, Aspirin, Atorvastatin -Monitor BP and HR -Echo; follow up with results Gastrointestinal -Heart healthy diet Endocrine -Continue with Synthroid; TSH WNL -maintain euglycemia and normothermia Renal -Maintain euvolemia -Maintain electrolytes Hematologic -H&H stable continue to monitor Skin -Bandage removal Infectious disease -Absence of leukocytosis -Afebrile -No further intervention <Luis Alberto Evans - Last Filed: 09/25/17 11:37> CCU Objective - Medications Active Medications: Active Medications Generic Name Dose Route Start Last Admin Trade Name Freq PRN Reason Stop Dose Admin Aspirin 81 mg 09/25/17 10:00 09/25/17 10:01 Ecotrin PO 81 mg DAILY [facility] Administration Atorvastatin Calcium 40 mg 09/24/17 17:00 09/24/17 17:30 Lipitor PO 40 mg DIN [facility]IMA Administration Clopidogrel Bisulfate 75 mg 09/24/17 10:45 09/25/17 10:01 Plavix PO 75 mg DAILY [facility] Administration Levothyroxine Sodium 25 mcg 09/25/17 07:30 09/25/17 08:10 Synthroid PO 25 mcg ACB [facility] Administration Metoprolol Tartrate 25 mg 09/24/17 18:00 Lopressor PO BID [facility] Neomycin/Polymyxin/Bacitracin 0 gm 09/24/17 11:15 09/25/17 10:01 Neosporin Triple Antibiotic Oint TOP 1 applic BID NIMA Administration Pantoprazole Sodium 40 mg 09/24/17 16:00 09/25/17 08:08 Protonix Ec Tab PO 40 mg 0600,1600 NIMA Administration - Patient Studies Lab Studies: Microbiology Studies 09/24/17 12:10 Urine Culture - Final Urine No Growth (<1,000 CFU/ML) Lab Studies 09/25/17 09/25/17 09/24/17 Range/Units 06:25 06:25 13:55 WBC 6.8 (4.5-11.0) 10^3/ul RBC 4.16 (3.5-6.1) 10^6/uL Hgb 12.1 L (14.0-18.0) g/dL Hct 36.4 L (42.0-52.0) % MCV 87.5 (80.0-105.0) fl MCH 29.1 (25.0-35.0) pg MCHC 33.2 (31.0-37.0) g/dl RDW 13.2 (11.5-14.5) % Plt Count 202 (120.0-450.0) 10^3/uL MPV 9.4 (7.0-11.0) fl Gran % 65.5 (50.0-68.0) % Lymph % (Auto) 26.0 (22.0-35.0) % Graves % (Auto) 7.3 H (1.0-6.0) % Eos % (Auto) 0.9 L (1.5-5.0) % Baso % (Auto) 0.3 (0.0-3.0) % Gran # 4.46 (1.4-6.5) Lymph # (Auto) 1.8 (1.2-3.4) Graves # (Auto) 0.5 (0.1-0.6) Eos # (Auto) 0.1 (0.0-0.7) Baso # (Auto) 0.02 (0.0-2.0) K/mm3 Sodium 141 (132-148) mmol/L Potassium 3.6 (3.6-5.0) mmol/L Chloride 107 (98-107) mmol/L Carbon Dioxide 23 (21-33) mmol/L Anion Gap 14 (10-20) BUN 18 (7-21) mg/dL Creatinine 1.0 (0.8-1.5) mg/dl Est GFR ( Amer) > 60 Est GFR (Non-Af Amer) > 60 POC Glucose (mg/dL) (65-110) mg/dL Random Glucose 85 (70-110) mg/dL Calcium 8.7 (8.4-10.5) mg/dL Phosphorus 3.9 (2.5-4.5) mg/dL Magnesium 2.1 (1.7-2.2) mg/dL Total Bilirubin 1.2 (0.2-1.3) mg/dL AST 32 (17-59) U/L ALT 37 (7-56) U/L Alkaline Phosphatase 65 (38-126) U/L Total Protein 6.1 (5.8-8.3) g/dL Albumin 3.5 (3.0-4.8) g/dL Globulin 2.5 gm/dL Albumin/Globulin Ratio 1.4 (1.1-1.8) Triglycerides 70 (35-160) mg/dL Cholesterol 98 L (130-200) mg/dL LDL Cholesterol Direct 41 (0-129) mg/dL HDL Cholesterol 41 (29-60) mg/dL Urine Color (YELLOW) Urine Appearance (CLEAR) Urine pH (4.7-8.0) Ur Specific Arg[place] (1.005-1.035) Urine Protein (<30 mg/dL) mg/dL Urine Glucose (UA) (NEGATIVE) mg/dL Urine Ketones (NEGATIVE) mg/dL Urine Blood (NEGATIVE) Urine Nitrate (NEGATIVE) Urine Bilirubin (NEGATIVE) Urine Urobilinogen (<1 E.U./dL) E.U./dL Ur Leukocyte Esterase (NEGATIVE) Janna/uL Blood Type Confirm O POSITIVE 09/24/17 09/24/17 Range/Units 11:52 10:56 WBC (4.5-11.0) 10^3/ul RBC (3.5-6.1) 10^6/uL Hgb (14.0-18.0) g/dL Hct (42.0-52.0) % MCV (80.0-105.0) fl MCH (25.0-35.0) pg MCHC (31.0-37.0) g/dl RDW (11.5-14.5) % Plt Count (120.0-450.0) 10^3/uL MPV (7.0-11.0) fl Gran % (50.0-68.0) % Lymph % (Auto) (22.0-35.0) % Graves % (Auto) (1.0-6.0) % Eos % (Auto) (1.5-5.0) % Baso % (Auto) (0.0-3.0) % Gran # (1.4-6.5) Lymph # (Auto) (1.2-3.4) Graves # (Auto) (0.1-0.6) Eos # (Auto) (0.0-0.7) Baso # (Auto) (0.0-2.0) K/mm3 Sodium (132-148) mmol/L Potassium (3.6-5.0) mmol/L Chloride (98-107) mmol/L Carbon Dioxide (21-33) mmol/L Anion Gap (10-20) BUN (7-21) mg/dL Creatinine (0.8-1.5) mg/dl Est GFR ( Amer) Est GFR (Non-Af Amer) POC Glucose (mg/dL) 78 (65-110) mg/dL Random Glucose (70-110) mg/dL Calcium (8.4-10.5) mg/dL Phosphorus (2.5-4.5) mg/dL Magnesium (1.7-2.2) mg/dL Total Bilirubin (0.2-1.3) mg/dL AST (17-59) U/L ALT (7-56) U/L Alkaline Phosphatase (38-126) U/L Total Protein (5.8-8.3) g/dL Albumin (3.0-4.8) g/dL Globulin gm/dL Albumin/Globulin Ratio (1.1-1.8) Triglycerides (35-160) mg/dL Cholesterol (130-200) mg/dL LDL Cholesterol Direct (0-129) mg/dL HDL Cholesterol (29-60) mg/dL Urine Color Yellow (YELLOW) Urine Appearance Clear (CLEAR) Urine pH 6.5 (4.7-8.0) Ur Specific Arg[place] <= 1.005 (1.005-1.035) Urine Protein Negative (<30 mg/dL) mg/dL Urine Glucose (UA) Negative (NEGATIVE) mg/dL Urine Ketones Negative (NEGATIVE) mg/dL Urine Blood Negative (NEGATIVE) Urine Nitrate Negative (NEGATIVE) Urine Bilirubin Negative (NEGATIVE) Urine Urobilinogen 0.2 (<1 E.U./dL) E.U./dL Ur Leukocyte Esterase Negative (NEGATIVE) Janna/uL Blood Type Confirm Laboratory Results - last 24 hr 09/24/17 09/24/17 09/24/17 10:56 11:52 13:55 WBC RBC Hgb Hct MCV MCH MCHC RDW Plt Count MPV Gran % Lymph % (Auto) Graves % (Auto) Eos % (Auto) Baso % (Auto) Gran # Lymph # (Auto) Graves # (Auto) Eos # (Auto) Baso # (Auto) Sodium Potassium Chloride Carbon Dioxide Anion Gap BUN Creatinine Est GFR ( Amer) Est GFR (Non-Af Amer) POC Glucose (mg/dL) 78 Random Glucose Calcium Phosphorus Magnesium Total Bilirubin AST ALT Alkaline Phosphatase Total Protein Albumin Globulin Albumin/Globulin Ratio Triglycerides Cholesterol LDL Cholesterol Direct HDL Cholesterol Urine Color Yellow Urine Appearance Clear Urine pH 6.5 Ur Specific Arg[place] <= 1.005 Urine Protein Negative Urine Glucose (UA) Negative Urine Ketones Negative Urine Blood Negative Urine Nitrate Negative Urine Bilirubin Negative Urine Urobilinogen 0.2 Ur Leukocyte Esterase Negative Blood Type Confirm O POSITIVE 09/25/17 09/25/17 06:25 06:25 WBC 6.8 RBC 4.16 Hgb 12.1 L Hct 36.4 L MCV 87.5 MCH 29.1 MCHC 33.2 RDW 13.2 Plt Count 202 MPV 9.4 Gran % 65.5 Lymph % (Auto) 26.0 Graves % (Auto) 7.3 H Eos % (Auto) 0.9 L Baso % (Auto) 0.3 Gran # 4.46 Lymph # (Auto) 1.8 Graves # (Auto) 0.5 Eos # (Auto) 0.1 Baso # (Auto) 0.02 Sodium 141 Potassium 3.6 Chloride 107 Carbon Dioxide 23 Anion Gap 14 BUN 18 Creatinine 1.0 Est GFR ( Amer) > 60 Est GFR (Non-Af Amer) > 60 POC Glucose (mg/dL) Random Glucose 85 Calcium 8.7 Phosphorus 3.9 Magnesium 2.1 Total Bilirubin 1.2 AST 32 ALT 37 Alkaline Phosphatase 65 Total Protein 6.1 Albumin 3.5 Globulin 2.5 Albumin/Globulin Ratio 1.4 Triglycerides 70 Cholesterol 98 L LDL Cholesterol Direct 41 HDL Cholesterol 41 Urine Color Urine Appearance Urine pH Ur Specific [place] Urine Protein Urine Glucose (UA) Urine Ketones Urine Blood Urine Nitrate Urine Bilirubin Urine Urobilinogen Ur Leukocyte Esterase Blood Type Confirm Assessment/Plan - Assessment and Plan (Free Text) Plan: Patient seen and examined on rounds, with resident, on rounds agree with note with following additions/exceptions: Patient is 61yo male with PMHx of HLD, CAD s/p PCI in 2005, hypothyroidism, presented with STEMI, V1-V3 MAGUE, s/p cardiac cath, with LAD restenosis, stent placed. Currently afebrile, HD stable, comfortable, in NAD, chest pain free. No major complaints, doing well. Plan for discharge today. STEMI HLD Hypothyroid CAD Recommend: - ASA, Plavix Statin - HOLD BB - follow up Lipid Panel, HgbA1C - ECHO - cardiology eval - check TSH - DVT ppx - stable, possible discharge today as per primary team
[2017-09-25] MEDS: Pantoprazole 40 mg EC Tab PO SCH (08:08)
--- NOTE | 2017-09-25 08:53 | PN ---
DATE: 09/25/2017 CARDIOLOGY FOLLOWUP SUBJECTIVE: The patient is asymptomatic. PHYSICAL EXAMINATION VITAL SIGNS: Blood pressure is 122/80, heart rate is in the 70s. NECK: Negative JVD. LUNGS: Without rales. HEART: Reveals S1, S2. EXTREMITIES: Without edema. The right groin site is stable. LABORATORY DATA: BUN and creatinine unremarkable. Hemoglobin is 12.1. IMPRESSION: 1. Status post emergency percutaneous transluminal coronary angioplasty and stent of an left anterior descending artery. 2. Coronary artery disease. 3. Hypercholesterolemia. 4. Recent anterior wall myocardial infarction. PLAN: Given these findings, the patient's cardiac status is stable. The patient can be discharged today after ambulation in the unit. He needs to go home on aspirin, Plavix and statin therapy with discontinue the beta blockers. Dago Quintana MD
--- NOTE | 2017-09-25 09:47 | CP.PCM.DIS ---
<Hesham Venegas - Last Filed: 09/25/17 11:36> Provider - Provider Date of Admission: 09/24/17 10:40 Attending physician: Dandy Pickering MD Time Spent in preparation of Discharge (in minutes): 45 Diagnosis - Discharge Diagnosis (1) STEMI (ST elevation myocardial infarction) Status: Resolved Priority: High (2) Hyperlipidemia Status: Chronic Priority: Medium (3) Hypothyroidism Status: Chronic Priority: Medium Hospital Course - Lab Results Lab Results: Most Recent Lab Values WBC 6.8 10^3/ul (4.5-11.0) 09/25/17 06:25 RBC 4.16 10^6/uL (3.5-6.1) 09/25/17 06:25 Hgb 12.1 g/dL (14.0-18.0) L 09/25/17 06:25 Hct 36.4 % (42.0-52.0) L 09/25/17 06:25 MCV 87.5 fl (80.0-105.0) 09/25/17 06:25 MCH 29.1 pg (25.0-35.0) 09/25/17 06:25 MCHC 33.2 g/dl (31.0-37.0) 09/25/17 06:25 RDW 13.2 % (11.5-14.5) 09/25/17 06:25 Plt Count 202 10^3/uL (120.0-450.0) 09/25/17 06:25 MPV 9.4 fl (7.0-11.0) 09/25/17 06:25 Gran % 65.5 % (50.0-68.0) 09/25/17 06:25 Lymph % (Auto) 26.0 % (22.0-35.0) 09/25/17 06:25 Tompkins % (Auto) 7.3 % (1.0-6.0) H 09/25/17 06:25 Eos % (Auto) 0.9 % (1.5-5.0) L 09/25/17 06:25 Baso % (Auto) 0.3 % (0.0-3.0) 09/25/17 06:25 Gran # 4.46 (1.4-6.5) 09/25/17 06:25 Lymph # (Auto) 1.8 (1.2-3.4) 09/25/17 06:25 Tompkins # (Auto) 0.5 (0.1-0.6) 09/25/17 06:25 Eos # (Auto) 0.1 (0.0-0.7) 09/25/17 06:25 Baso # (Auto) 0.02 K/mm3 (0.0-2.0) 09/25/17 06:25 PT 11.9 SECONDS (9.4-12.5) 09/24/17 09:40 INR 1.03 (0.93-1.08) 09/24/17 09:40 Sodium 141 mmol/L (132-148) 09/25/17 06:25 Potassium 3.6 mmol/L (3.6-5.0) 09/25/17 06:25 Chloride 107 mmol/L (98-107) 09/25/17 06:25 Carbon Dioxide 23 mmol/L (21-33) 09/25/17 06:25 Anion Gap 14 (10-20) 09/25/17 06:25 BUN 18 mg/dL (7-21) 09/25/17 06:25 Creatinine 1.0 mg/dl (0.8-1.5) 09/25/17 06:25 Est GFR ( Amer) > 60 09/25/17 06:25 Est GFR (Non-Af Amer) > 60 09/25/17 06:25 POC Glucose (mg/dL) 78 mg/dL (65-110) 09/24/17 10:56 Random Glucose 85 mg/dL (70-110) 09/25/17 06:25 Hemoglobin A1c 5.9 % (4.2-6.5) 09/24/17 09:40 Calcium 8.7 mg/dL (8.4-10.5) 09/25/17 06:25 Phosphorus 3.9 mg/dL (2.5-4.5) 09/25/17 06:25 Magnesium 2.1 mg/dL (1.7-2.2) 09/25/17 06:25 Total Bilirubin 1.2 mg/dL (0.2-1.3) 09/25/17 06:25 AST 32 U/L (17-59) 09/25/17 06:25 ALT 37 U/L (7-56) 09/25/17 06:25 Alkaline Phosphatase 65 U/L (38-126) 09/25/17 06:25 Lactate Dehydrogenase 431 U/L (333-699) 09/24/17 09:40 Total Creatine Kinase 261 U/L (35-230) H 09/24/17 09:40 CK-MB (CK-2) 4.4 ng/mL (0.0-3.6) H 09/24/17 09:40 CK-MB (CK-2) % Cancelled 09/24/17 09:40 Troponin I < 0.01 ng/mL 09/24/17 09:40 Total Protein 6.1 g/dL (5.8-8.3) 09/25/17 06:25 Albumin 3.5 g/dL (3.0-4.8) 09/25/17 06:25 Globulin 2.5 gm/dL 09/25/17 06:25 Albumin/Globulin Ratio 1.4 (1.1-1.8) 09/25/17 06:25 Triglycerides 70 mg/dL (35-160) 09/25/17 06:25 Cholesterol 98 mg/dL (130-200) L 09/25/17 06:25 LDL Cholesterol Direct 41 mg/dL (0-129) 09/25/17 06:25 HDL Cholesterol 41 mg/dL (29-60) 09/25/17 06:25 Free T4 0.97 ng/dL (0.78-2.19) 09/24/17 09:40 TSH 3rd Generation 4.00 mIU/mL (0.46-4.68) 09/24/17 09:40 Urine Color Yellow (YELLOW) 09/24/17 11:52 Urine Appearance Clear (CLEAR) 09/24/17 11:52 Urine pH 6.5 (4.7-8.0) 09/24/17 11:52 Ur Specific Ransom <= 1.005 (1.005-1.035) 09/24/17 11:52 Urine Protein Negative mg/dL (<30 mg/dL) 09/24/17 11:52 Urine Glucose (UA) Negative mg/dL (NEGATIVE) 09/24/17 11:52 Urine Ketones Negative mg/dL (NEGATIVE) 09/24/17 11:52 Urine Blood Negative (NEGATIVE) 09/24/17 11:52 Urine Nitrate Negative (NEGATIVE) 09/24/17 11:52 Urine Bilirubin Negative (NEGATIVE) 09/24/17 11:52 Urine Urobilinogen 0.2 E.U./dL (<1 E.U./dL) 09/24/17 11:52 Ur Leukocyte Esterase Negative Janna/uL (NEGATIVE) 09/24/17 11:52 Blood Type O POSITIVE 09/24/17 09:45 Blood Type Confirm O POSITIVE 09/24/17 13:55 Antibody Screen Negative 09/24/17 09:45 BBK History Checked No verified bt 09/24/17 09:45 - Hospital Course Hospital Course: Patient is a 61 [place] male, German speaking only, whose past medical history includes prior LA and cardiac stent placement in [place] 2005 and family history of premature cardiac event was brought in from [facility] for evaluation and treatment of left sided chest pain associated with nausea and shortness of breath. With the use of physical examinations, lab work , and imaging the patient was diagnosed with and treated for an STEMI along with the patients chronic medical conditions. The EKG at [facility] showed sinus rhythm with an HR of [address] elevation at V1-4. The EKG at [facility] shows sinus rhtyhm with a HR of [address] elevation V1-V3, new TWI in V4, and no reciprocal changes. During their hospital stay the patient was seen by cardiology (Dr. Quintana) and his recommendations were both appreciated and utilized in the care for this patient. Patient received ASA 325 prior to [facility] and received integrillin bolus x1 prior to catherization lab. Patient experienced a restenosis in prior LAD stent. After PCI, he received a new drug- eluting stent at the LAD. At this time the patient is medically stable for discharge. Patient understands and appreciates discharge plan. Patient instructed to follow up with primary care physicians and referrals within three to five days from discharge. Furthermore, the patient is instructed to take medications as prescribed and to return to emergency room for evaluation of intractable headache, fever, chills, dizziness, chest pain, shortness of breath , abdominal pain, nausea, vomiting, diarrhea, constipation, and urinary symptoms. This is a brief summary of the patients hospital course. Please see patient chart for full details. Discharge Exam - Additional Findings Additional findings: - Constitutional Appears: No Acute Distress - Head Exam Head Exam: ATRAUMATIC, NORMAL INSPECTION, NORMOCEPHALIC - Eye Exam Eye Exam: EOMI, Normal appearance, PERRL. absent: Scleral icterus - ENT Exam ENT Exam: Mucous Membranes Moist - Respiratory Exam Respiratory Exam: Clear to Auscultation Bilateral, NORMAL BREATHING PATTERN. absent: Rales, Rhonchi, Wheezes - Cardiovascular Exam Cardiovascular Exam: Bradycardia, REGULAR RHYTHM, +S1, +S2 - GI/Abdominal Exam GI & Abdominal Exam: Normal Bowel Sounds, Soft. absent: Distended, Tenderness - Extremities Exam Extremities exam: Positive for: pedal pulses present. Negative for: calf tenderness, pedal edema Additional comments: R groin scab, well healed - Neurological Exam Neurological exam: Alert, Oriented x3 - Psychiatric Exam Psychiatric exam: Normal Affect, Normal Mood - Skin Skin Exam: Dry, Warm Discharge Plan - Discharge Medications Prescriptions: Aspirin [Aspirin Chewable] 81 mg PO DAILY 14 Days #14 ctb Atorvastatin [Lipitor] 40 mg PO DAILY 14 Days #14 tab Clopidogrel [Plavix] 75 mg PO DAILY 14 Days #14 tab Levothyroxine [Synthroid] 25 mcg PO DAILY 14 Days tab - Follow Up Plan Condition: FAIR Disposition: HOME/ ROUTINE Instructions: Heart Attack (DC) Additional Instructions: 1. Call [phone] to schedule an appointment at [facility] and get an appointment in 1 week regarding - Your recent heart attack - Your weak urination, likely benign prostate hyperplasia 2. Make an appointment with Dr Quintana, program instructor in 1-2 week 3. Return to the emergency room for evaluation of intractable headache, fever, chills, dizziness, chest pain, shortness of breath, abdominal pain, nausea, vomiting, diarrhea, constipation, and urinary symptoms. 4. Take medications as prescribed. Referrals: Dago Quintana MD [Staff Provider] - <Dandy Pickering - Last Filed: 09/25/17 17:00> Provider - Provider Date of Admission: 09/24/17 10:40 Attending physician: Dandy Pickering MD Hospital Course - Lab Results Lab Results: Micro Results 09/24/17 12:10 Urine Urine Culture - Final No Growth (<1,000 CFU/ML) Most Recent Lab Values WBC 6.8 10^3/ul (4.5-11.0) 09/25/17 06:25 RBC 4.16 10^6/uL (3.5-6.1) 09/25/17 06:25 Hgb 12.1 g/dL (14.0-18.0) L 09/25/17 06:25 Hct 36.4 % (42.0-52.0) L 09/25/17 06:25 MCV 87.5 fl (80.0-105.0) 09/25/17 06:25 MCH 29.1 pg (25.0-35.0) 09/25/17 06:25 MCHC 33.2 g/dl (31.0-37.0) 09/25/17 06:25 RDW 13.2 % (11.5-14.5) 09/25/17 06:25 Plt Count 202 10^3/uL (120.0-450.0) 09/25/17 06:25 MPV 9.4 fl (7.0-11.0) 09/25/17 06:25 Gran % 65.5 % (50.0-68.0) 09/25/17 06:25 Lymph % (Auto) 26.0 % (22.0-35.0) 09/25/17 06:25 Tompkins % (Auto) 7.3 % (1.0-6.0) H 09/25/17 06:25 Eos % (Auto) 0.9 % (1.5-5.0) L 09/25/17 06:25 Baso % (Auto) 0.3 % (0.0-3.0) 09/25/17 06:25 Gran # 4.46 (1.4-6.5) 09/25/17 06:25 Lymph # (Auto) 1.8 (1.2-3.4) 09/25/17 06:25 Tompkins # (Auto) 0.5 (0.1-0.6) 09/25/17 06:25 Eos # (Auto) 0.1 (0.0-0.7) 09/25/17 06:25 Baso # (Auto) 0.02 K/mm3 (0.0-2.0) 09/25/17 06:25 PT 11.9 SECONDS (9.4-12.5) 09/24/17 09:40 INR 1.03 (0.93-1.08) 09/24/17 09:40 Sodium 141 mmol/L (132-148) 09/25/17 06:25 Potassium 3.6 mmol/L (3.6-5.0) 09/25/17 06:25 Chloride 107 mmol/L (98-107) 09/25/17 06:25 Carbon Dioxide 23 mmol/L (21-33) 09/25/17 06:25 Anion Gap 14 (10-20) 09/25/17 06:25 BUN 18 mg/dL (7-21) 09/25/17 06:25 Creatinine 1.0 mg/dl (0.8-1.5) 09/25/17 06:25 Est GFR ( Amer) > 60 09/25/17 06:25 Est GFR (Non-Af Amer) > 60 09/25/17 06:25 POC Glucose (mg/dL) 78 mg/dL (65-110) 09/24/17 10:56 Random Glucose 85 mg/dL (70-110) 09/25/17 06:25 Hemoglobin A1c 5.9 % (4.2-6.5) 09/24/17 09:40 Calcium 8.7 mg/dL (8.4-10.5) 09/25/17 06:25 Phosphorus 3.9 mg/dL (2.5-4.5) 09/25/17 06:25 Magnesium 2.1 mg/dL (1.7-2.2) 09/25/17 06:25 Total Bilirubin 1.2 mg/dL (0.2-1.3) 09/25/17 06:25 AST 32 U/L (17-59) 09/25/17 06:25 ALT 37 U/L (7-56) 09/25/17 06:25 Alkaline Phosphatase 65 U/L (38-126) 09/25/17 06:25 Lactate Dehydrogenase 431 U/L (333-699) 09/24/17 09:40 Total Creatine Kinase 261 U/L (35-230) H 09/24/17 09:40 CK-MB (CK-2) 4.4 ng/mL (0.0-3.6) H 09/24/17 09:40 CK-MB (CK-2) % Cancelled 09/24/17 09:40 Troponin I < 0.01 ng/mL 09/24/17 09:40 Total Protein 6.1 g/dL (5.8-8.3) 09/25/17 06:25 Albumin 3.5 g/dL (3.0-4.8) 09/25/17 06:25 Globulin 2.5 gm/dL 09/25/17 06:25 Albumin/Globulin Ratio 1.4 (1.1-1.8) 09/25/17 06:25 Triglycerides 70 mg/dL (35-160) 09/25/17 06:25 Cholesterol 98 mg/dL (130-200) L 09/25/17 06:25 LDL Cholesterol Direct 41 mg/dL (0-129) 09/25/17 06:25 HDL Cholesterol 41 mg/dL (29-60) 09/25/17 06:25 Free T4 0.97 ng/dL (0.78-2.19) 09/24/17 09:40 TSH 3rd Generation 4.00 mIU/mL (0.46-4.68) 09/24/17 09:40 Urine Color Yellow (YELLOW) 09/24/17 11:52 Urine Appearance Clear (CLEAR) 09/24/17 11:52 Urine pH 6.5 (4.7-8.0) 09/24/17 11:52 Ur Specific Ransom <= 1.005 (1.005-1.035) 09/24/17 11:52 Urine Protein Negative mg/dL (<30 mg/dL) 09/24/17 11:52 Urine Glucose (UA) Negative mg/dL (NEGATIVE) 09/24/17 11:52 Urine Ketones Negative mg/dL (NEGATIVE) 09/24/17 11:52 Urine Blood Negative (NEGATIVE) 09/24/17 11:52 Urine Nitrate Negative (NEGATIVE) 09/24/17 11:52 Urine Bilirubin Negative (NEGATIVE) 09/24/17 11:52 Urine Urobilinogen 0.2 E.U./dL (<1 E.U./dL) 09/24/17 11:52 Ur Leukocyte Esterase Negative Janna/uL (NEGATIVE) 09/24/17 11:52 Blood Type O POSITIVE 09/24/17 09:45 Blood Type Confirm O POSITIVE 09/24/17 13:55 Antibody Screen Negative 09/24/17 09:45 BBK History Checked No verified bt 09/24/17 09:45 Attending/Attestation - Attestation I have personally seen and examined this patient.: Yes I have fully participated in the care of the patient.: Yes I have reviewed all pertinent clinical information, including history, physical exam and plan: Yes Notes (Text): I have seen and examined the patient at bedside. Agree with the above note.
[2017-09-25] MEDS: Bacitracin/Neomycin/Polymyxin Oint(30GM) TOP SCH (10:01)
--- NOTE | 2017-09-25 10:46 | CARD ---
APPROVED REPORT EKG Measurement Heart [id number] [place] 206P50 [id number] <Conclusion> Marked sinus bradycardia Left anterior fascicular block Anterolateral infarct, age undetermined Abnormal ECG
--- NOTE | 2017-09-25 10:54 | CARD ---
APPROVED REPORT EKG Measurement Heart [id number] CT [id number] <Conclusion> Marked sinus bradycardia Left axis deviation Anterolateral infarct, age undetermined Abnormal ECG
[2017-09-25] MEDS ORDERED: Pneumococcal 23-Valent Vaccine IM ONE (13:17)
[2017-09-25 15:40] VITALS: BP 95/49; PULSE 58; RESP 13; O2SAT 96
[2017-09-25 15:47] VITALS: TEMP 98.8
--- NOTE | 2017-09-25 18:25 | CARD ---
APPROVED REPORT EKG Measurement Heart [id number] [place] [id number] <Conclusion> Marked sinus bradycardia Left axis deviation Anterolateral infarct, age undetermined Abnormal ECG
--- NOTE | 2017-09-25 20:05 | CARD ---
APPROVED REPORT EXAM: Two-dimensional and M-mode echocardiogram with Doppler and color Doppler. INDICATION CODE HEART 2D DIMENSIONS Left Atrium (2D)3.8 (1.6-4.0cm)IVSd0.9 (0.7-1.1cm) LVDd5.3 (3.9-5.9cm)PWd0.9 (0.7-1.1cm) LVDs4.4 (2.5-4.0cm)FS (%) 16.0 % LVEF (%)33.2 (>50%) M-Mode DIMENSIONS Aortic Root3.20 (2.2-3.7cm)Aortic Cusp Exc.1.80 (1.5-2.0cm) Aortic Valve AoV Peak Spotcfbf760.0cm/Sadie Peak GR.4mmHg Mitral Valve MV E Uefxrosg07.1cm/sMV A Hoyfppoh12.9cm/sE/A ratio1.4 TDI Lateral E' Peak V10.60cm/sMedial E' Peak V7.12cm/sE/Lateral E'8.0 E/Medial E'12.0 Pulmonary Valve PV Peak Jejxbhir38.3cm/sPV Peak Grad.2mmHg LEFT VENTRICLE The Left Ventricle is borderline dilated. There is normal left ventricular wall thickness. The systolic function is severely impaired.EF-25% There is moderate to severe hypokinesis in the apical anterior wall. Transmitral Doppler flow pattern is Grade II-pseudonormal filling dynamics. No left ventricle thrombus noted on this study. There is no ventricular septal defect visualized. There is no left ventricular aneurysm. There is no mass noted in the left ventricle. RIGHT VENTRICLE The right ventricle is normal size. There is normal right ventricular wall thickness. The right ventricular systolic function is normal. ATRIA The left atrium size is normal. The right atrium size is normal. The interatrial septum is intact with no evidence for an atrial septal defect. AORTIC VALVE The aortic valve is normal in structure. No aortic regurgitation is present. There is no aortic valvular stenosis. There is no aortic valvular vegetation. MITRAL VALVE The mitral valve is normal in structure. Mitral regurgitation is trace to mild. There is no mitral valve stenosis. There is no evidence of mitral valve prolapse. TRICUSPID VALVE The tricuspid valve is normal in structure. There is trace tricuspid regurgitation. There is no tricuspid valve stenosis. There is no tricuspid valve prolapse or vegetation. PULMONIC VALVE The pulmonary valve is normal in structure. There is no pulmonic valvular regurgitation. There is no pulmonic valvular stenosis. GREAT VESSELS The aortic root is normal in size. The ascending aorta is normal in size. The pulmonary artery is normal. The IVC is dilated. PERICARDIAL EFFUSION There is no pleural effusion. There is no pericardial effusion. <Conclusion> The Left Ventricle is borderline dilated. There is normal left ventricular wall thickness. The systolic function is severely impaired.EF-25-30% Mitral regurgitation is trace to mild. There is trace tricuspid regurgitation. NO THROMBUS NOTED.
== END 2017-09-25 17:10 | disposition home or self-care (01) | DRG 247 ==
LOC: ED 09:35 → CATH 09:56 → ICU 10:38 → CATH 10:40 → ICU 10:40
PROVIDERS: ADMIT Hospitalist; ATTEND Hospitalist
PROC: 027034Z Dilation of Coronary Artery, One Artery with Drug-eluting Intraluminal Device, Percutaneous Approach (ICD-10-PCS; principal; 2017-09-24)
PROC: 4A023N7 Measurement of Cardiac Sampling and Pressure, Left Heart, Percutaneous Approach (ICD-10-PCS; 2017-09-24)
PROC: B2111ZZ Fluoroscopy of Multiple Coronary Arteries using Low Osmolar Contrast (ICD-10-PCS; 2017-09-24)
PROC: B2151ZZ Fluoroscopy of Left Heart using Low Osmolar Contrast (ICD-10-PCS; 2017-09-24)
PROC: 3E033PZ Introduction of Platelet Inhibitor into Peripheral Vein, Percutaneous Approach (ICD-10-PCS; 2017-09-24)
PROC: 3E0234Z Introduction of Serum, Toxoid and Vaccine into Muscle, Percutaneous Approach (ICD-10-PCS; 2017-09-25)
DX: I21.02 ST elevation (STEMI) myocardial infarction involving left anterior descending coronary artery (principal); T82.855A Stenosis of coronary artery stent, initial encounter; E03.9 Hypothyroidism, unspecified; E78.00 Pure hypercholesterolemia, unspecified; E78.5 Hyperlipidemia, unspecified; I25.10 Atherosclerotic heart disease of native coronary artery without angina pectoris; I25.2 Old myocardial infarction; Y83.1 Surgical operation with implant of artificial internal device as the cause of abnormal reaction of the patient, or of later complication, without mention of misadventure at the time of the procedure; Z79.82 Long term (current) use of aspirin; Z82.49 Family history of ischemic heart disease and other diseases of the circulatory system; R40.2412 Glasgow coma scale score 13-15, at arrival to emergency department; Z23 Encounter for immunization